=== PATIENT | female | born 1985 | race Caucasian/White ===

== ENCOUNTER 2018-11-08 09:27 | Outpatient (CLI) | payer OTHER ==
--- NOTE | 2018-11-08 10:24 | RAD ---
FExam: 3 views lumbar spine HISTORY: Lumbago. Sciatica. COMPARISON: 05/13/2017 FINDINGS: 5 lumbar type vertebral bodies. No fracture. Neutral position: Straightening of normal lumbar lordosis. No spondylolisthesis or spondylolysis Flexion and extension: No abnormal motion IMPRESSION: No significant spondylolisthesis or spondylolysis.
== END 2018-11-08 09:28 | disposition home or self-care (01) ==
LOC: RAD 09:27
PROVIDERS: ATTEND Nurse Practitioner Family
DX: M54.5 Low back pain (principal)
CPT/HCPCS: 72100

== ENCOUNTER 2020-04-29 18:24 | Emergency (ER) | payer OTHER ==
--- NOTE | 2020-04-29 20:12 | MRI ---
MRI BRAIN: Date: 04-29-2020 PROVIDED CLINICAL HISTORY: FINDINGS: The ventricular system appears normal in size and morphology. There is no evidence for intracranial h emorrhage or mass effect. There is no evidence for restricted diffusion to suggest recent infarction. Appropriate flow voids are seen within the major intracranial vessels. Mucous retention cysts are se en within the maxillary sinuses and sphenoid sinus. The extracranial soft tissues and calvarial marro w signal appear otherwise unremarkable. IMPRESSION: No evidence for an acute intracranial abnormality. POS: [facility]
== END 2020-04-29 20:37 | disposition home or self-care (01) ==
LOC: ERS 18:24
DX: G43.909 Migraine, unspecified, not intractable, without status migrainosus (principal); R20.2 Paresthesia of skin; I10 Essential (primary) hypertension; J45.909 Unspecified asthma, uncomplicated; F41.9 Anxiety disorder, unspecified; F17.210 Nicotine dependence, cigarettes, uncomplicated; Z79.899 Other long term (current) drug therapy
CPT/HCPCS: 36415; 70551